=== PATIENT | male | born 1975 | race Caucasian/White ===

== ENCOUNTER → 2016-05-23 | Outpatient (CLI) | payer BC ==
--- NOTE | 2016-05-23 14:43 | DIAGNOSTIC IMAGING REPORT ---
RIGHT FOURTH TOE 3 VIEWS CLINICAL HISTORY: Right fourth toe bruising and swelling and pain. Trauma. COMPARISON: None. DISCUSSION: There is a nondisplaced fracture through the dorsal base of the distal phalanx versus artifact. There are no dislocations. IMPRESSION: Equivocal nondisplaced fracture through through the dorsal base of the distal phalanx. A repeat radiograph in 10-14 days is recommended. Electronically signed by: Abhi Joyner M.D. 05/23/2016 2:42 PM Dictated Date/Time: 05/23/2016 2:39 PM
== END | disposition home or self-care (01) ==
LOC: C.LABBC 14:13
PROVIDERS: ATTEND Nurse Practitioner Family
DX: S92.534A Nondisplaced fracture of distal phalanx of right lesser toe(s), initial encounter for closed fracture (principal); X58.XXXA Exposure to other specified factors, initial encounter; Z87.828 Personal history of other (healed) physical injury and trauma

== ENCOUNTER → 2016-05-29 | Outpatient (CLI) | payer BC, OTHER ==
[~2016-05-29] MED LIST: OPTIRAY 320 IV PRN
--- NOTE | 2016-05-29 09:32 | DIAGNOSTIC IMAGING REPORT ---
CT SCAN OF THE CHEST WITH IV CONTRAST CLINICAL HISTORY: Pulmonary nodule. COMPARISON STUDY: Chest CT scans dated 05/25/2013 and 04/21/2012. TECHNIQUE: Following the IV administration of 115 cc of Optiray 320, CT scan of the thorax was performed from the thoracic inlet to the upper abdomen. Images are reviewed in the axial, sagittal, and coronal planes. IV contrast was administered without complication. CT DOSE: 473.16 mGycm FINDINGS: Thyroid: Imaged portions of the thyroid gland are normal in size and attenuation. Thoracic aorta: The thoracic aorta is normal in caliber and demonstrates standard 3-vessel arch anatomy. No aneurysm or dissection is seen. Pulmonary vasculature: The pulmonary trunk is normal in caliber. There are no filling defects identified in the central pulmonary vessels to indicate pulmonary embolus. Note that this examination was not protocoled for evaluation of the pulmonary arteries. Heart: The heart is normal in size and configuration, and without pericardial effusion. Lungs and pleural spaces: The trachea and central airways are widely patent. An accessory right upper lobe bronchus arises directly from the trachea as seen on image #119. There is a 4 mm pulmonary nodule at the left lung base seen on image #189. There is no airspace consolidation or pleural effusion. Mediastinum: There is no mediastinal lymphadenopathy. Dalia: Clear. Axillae: There is no axillary lymphadenopathy. Upper abdomen: Scattered diverticula are noted in the partially imaged left colon. Partially visualized upper abdominal viscera is otherwise within normal limits. Skeletal structures: No lytic or blastic bony lesions are seen. IMPRESSION: 1. There is no airspace consolidation or pleural effusion. 2. A 4 mm left lower lobe pulmonary nodule is unchanged from 2012. This is of doubtful significance. 3. No new pulmonary nodules are identified. Electronically signed by: Garret Millard M.D. 05/29/2016 9:30 AM Dictated Date/Time: 05/29/2016 9:16 AM
== END | disposition home or self-care (01) ==
LOC: C.CTS 08:44
PROVIDERS: ATTEND Nurse Practitioner Family
DX: R91.1 Solitary pulmonary nodule (principal)